=== PATIENT | male | born 1995 | race Caucasian/White ===

== ENCOUNTER 2016-11-02 15:12 | Inpatient (IN) | payer BC ==
--- NOTE | ~2016-11-02 | HP ---
Unit #: [id number] #: [id number] Patient: ROSALES TSE [id number] [place] [address] [id number] MR#: [id number] NAME: ROSALES TSE ROOM: [facility] Age: 21 Sex: M Admission Date: 11/02/2016 : 1995 Attending Physician: Yossi Haley M.D. Admitting Physician: Yossi Haley M.D. Primary Care Physician: Primary Care Physician No HISTORY AND PHYSICAL HISTORY OF PRESENT ILLNESS Rosales is a 21 year old admitted to [address] [place] [address] with depression and after an alleged suicide attempt by carbon monoxide poisoning. He was taken to the emergency room and when medically stable transferred to [facility] for psychiatric care. PAST MEDICAL HISTORY Nothing significant PAST SURGICAL HISTORY Nothing reported ALLERGIES No known drug allergies. SOCIAL HISTORY He denies cigarettes, alcohol and illicit drug use. FAMILY HISTORY Medically noncontributory. REVIEW OF SYSTEMS CONSTITUTIONAL: No fever or chills. HEENT: Denies any sore throat, ear pain or runny nose. CARDIOVASCULAR: Denies chest pain, irregular heart rhythm or palpitations. CHEST: Denies shortness of breath or cough. No hemoptysis. GASTROINTESTINAL: Denies nausea, vomiting, diarrhea or chronic constipation. ENDOCRINE: Denies history of increased thirst or urination. No recent significant weight loss or gain. GENITOURINARY: Denies dysuria, frequency, or hematuria. SKIN: Denies any rashes. HEMATOLOGIC: Denies history of increased bleeding or bruising. MUSCULOSKELETAL: Denies any hot, swollen joints. No generalized muscle pain. NEUROLOGIC: Denies problems with vision or speech. No frequent, severe headaches. No numbness, tingling or weakness in any extremities. Denies loss of bladder or bowel control. CURRENT MEDICATIONS 1. Desyrel 50 mg q.h.s. p.r.n. Unit #: [id number] #: [id number] Patient: ROSALES TSE 2. Milk of Magnesia p.r.n. 3. Maalox p.r.n. 4. Tylenol p.r.n. PHYSICAL EXAMINATION GENERAL: Alert, well-nourished, in no apparent distress. VITAL SIGNS: Blood pressure 144/100, heart rate 80, respirations 16, temperature 98.6. WEIGHT: 135 pounds. HEIGHT: 5'11". SKIN: Warm and dry without rash or lesion. HEENT: Normocephalic. TMs not viewed. Oral and nasal passages clear. Conjunctivae clear. Pupils equal, round and reactive to light and accommodation. Extraocular movements intact. NECK: Supple without lymphadenopathy or thyromegaly. HEART: Regular rate and rhythm without murmur. LUNGS: Clear. ABDOMEN: Soft, nontender. : Not done. EXTREMITIES: No evidence of cyanosis, clubbing or edema. Moves all extremities without focal deficit. NEUROLOGICAL: Grossly within normal limits. Cranial Nerves: II: Visual claros are intact. III, IV AND : Extraocular movements are intact. Pupils are equal, round and reactive to light. V: Facial sensation is grossly normal. VII: Facial movements and expression are normal. VIII: Auditory acuity grossly intact. IX, X: Uvula is midline. Phonation is normal. XI: Patient shrugs shoulders and turns head normally. XII: Tongue protrudes in the midline. Sensory and Motor Function: Sensory and motor sensation is grossly normal. Motor: moves all extremities well. Coordination: Gait is normal. Deep Tendon Reflexes: Intact. IMPRESSION Psychiatric admission RECOMMENDATIONS PSYCHIATRIC: Per psychiatrist. MEDICAL: I see no contraindications to participating in facility's activities. MEDICAL PROGNOSIS Good. MEDICAL CONDITION Stable. Dictated by... Linda Medeiros P.A.-C. for Lani Maravilla/aric TD: 11/02/2016 23:04 Unit #: [id number] #: [id number] Patient: ROSALES TSE JOB #: [id number] HISTORY AND PHYSICAL Page 1 of 1 X Linda Medeiros HISTORY AND PHYSICAL
--- NOTE | ~2016-11-02 | DS ---
Unit #: [id number] #: [id number] Patient: ROSALES TSE [id number] [facility] [address] [place] [address] [id number] MR#: [id number] NAME: ROSALES TSE ROOM: [facility] Age: 21 Sex: M Admission Date: 11/02/2016 : 1995 Discharge Date: 11/04/2016 Attending Physician: Yossi Haley M.D. Primary Care Physician: Primary Care Physician No DISCHARGE SUMMARY REASON FOR ADMISSION Rosales is a 21-year-old man who reports he has become increasingly depressed since breaking up with his girlfriend who is his "best friend." After drinking a few beers, he decided to make a suicide attempt and attempt to asphyxiate himself by the car in the garage. He was found by his parents, taken to the emergency room and medically cleared, and then transferred to [facility]. DIAGNOSTIC STUDIES LABORATORY RESULTS: Please see hospital chart. HOSPITAL COURSE Rosales was admitted and placed on suicide precautions. Citalopram 20 mg daily for depression with trazodone 50 mg at bedtime as needed for insomnia was initiated. He was pleasant and cooperative and denied further suicidal ideation, intent or plan, admitting that his suicide attempt was not what he would have normally done and blamed it on the alcohol. He continued to have a brighter affect. On the date of discharge, he once again contracted for safety against further self-harm. DISCHARGE DIAGNOSES AXIS I: Adjustment disorder with depressed mood, rule out major depressive disorder. AXIS II: No diagnosis. AXIS III: None acute. AXIS IV: AXIS V: DISCHARGE INSTRUCTIONS Follow up with [facility] mental health. DISCHARGE MEDICATIONS Celexa 20 mg daily for depression. CONDITION AT DISCHARGE Improved. PROGNOSIS Fair to good. DIET AND ACTIVITY Ad reynold. Unit #: [id number] #: [id number] Patient: ROSALES TSE Dictated by... Lani Cuadra/anitha TD: 11/05/2016 02:39 JOB #: [id number] DISCHARGE SUMMARY Page 1 of 1 X Yossi Haley MD X DISCHARGE SUMMARY
--- NOTE | ~2016-11-02 | PA ---
Unit #: [id number] #: [id number] Patient: ROSALES TSE [id number] [facility] [address] [place] [address] [id number] MR#: [id number] NAME: ROSALES TSE ROOM: [facility] Age: 21 Sex: M Admission Date: 11/02/2016 : 1995 Date of Assessment: 11/03/2016 Attending Physician: Yossi Haley M.D. Admitting Physician: Yossi Haley M.D. Primary Care Physician: Primary Care Physician No PSYCHIATRIC ASSESSMENT DATE OF SERVICE 11/03/2016. INFORMANTS The patient, reliable; [facility], reliable. CHIEF COMPLAINT Suicide attempt. HISTORY OF PRESENT ILLNESS Rosales Tse is a 21-year-old man, who made a suicide attempt yesterday by attempting to overdose on carbon monoxide. The patient said that he did this impulsively after drinking several beers. His parents found him in the garage and brought him to the hospital where he was evaluated [facility] and [facility]. PAST PSYCHIATRIC HISTORY The patient denies any previous inpatient or outpatient psychiatric treatment and denies the use of psychiatric medications. FAMILY PSYCHIATRIC HISTORY There is no reported history of mental illness or chemical dependence. SOCIAL HISTORY The patient is a single college student, who recently broke up with a girlfriend and reports he is living with his parents and is close to them. He states that he has few friends and then his girlfriend was "my best friend" and describes his response to their break-up is "cliche." PAST MEDICAL HISTORY No chronic medical problems. MEDICATIONS None currently. ALLERGIES No known medication allergies. SUBSTANCE USE HISTORY There is no reported history of chemical abuse or dependence. MENTAL STATUS EXAMINATION Unit #: [id number] #: [id number] Patient: ROSALES TSE The patient presented as a neatly dressed and groomed man, who appeared his stated age. He stood 5 feet 11 inches tall, weighed 135 pounds. Vital signs; temperature 98.1, pulse 94, respirations 18, and blood pressure 145/100. His speech was spontaneous and easily understood. His musculoskeletal examination was calm. His mood was moderately depressed with a congruent affect. He was alert and fully oriented. His memory and concentration were fair to good. His thought processes were goal directed with no psychosis. He now denied further suicidal ideation, intent, or plan. Insight and judgment were fair. Fund of knowledge and abstraction were fair. ASSETS AND LIABILITIES The patient is youthful, voluntary and has supportive family. Liabilities include recent breakup with girlfriend, and recent suicide attempt. ADMITTING DIAGNOSES AXIS I: Adjustment disorder with depressed mood, F43.21. Rule out major depressive disorder. AXIS II: No diagnosis. AXIS III: Recent attempt at carbon monoxide poisoning. AXIS IV: AXIS V: PSYCHIATRIC PLAN The patient was admitted and placed on suicide precautions. He was going to initiate treatment with citalopram 20 mg daily for depression and trazodone was provided as needed for insomnia. He will enroll in psychotherapy groups and activities. A physical examination and laboratory studies will be ordered and reviewed. TREATMENT GOALS Resolution of SI, improvement in insight, and improvement in coping skills. DISCHARGE PLANNING [facility]. ESTIMATED LENGTH OF STAY 5 days. Dictated by... Yossi Haley M.D. [facility]/anitha TD: 11/05/2016 06:12 JOB #: [id number] Unit #: [id number] #: [id number] Patient: ROSALES TSE PSYCHIATRIC ASSESSMENT Page 1 of 1 X Yossi Haley MD PSYCHIATRIC ASSESSMENT
== END 2016-11-04 12:00 | disposition home or self-care (01) | DRG 881 ==
LOC: P2L 15:12
DX: F43.21 Adjustment disorder with depressed mood (principal); R45.851 Suicidal ideations